=== PATIENT | female | born 1955 | race Caucasian/White ===

== ENCOUNTER 2018-01-26 17:00 | Outpatient (CLI) | payer OTHER | END 2018-01-26 17:01 | disposition home or self-care (01) | LOC: SLEEPLAB 17:00 | PROVIDERS: ATTEND Internal Medicine | DX: G47.33 Obstructive sleep apnea (adult) (pediatric) (principal) | CPT/HCPCS: 95806 ==

== ENCOUNTER 2021-11-22 09:57 | Outpatient (CLI) | payer MEDICARE ==
[2021-11-22 20:33] LABS: SARS-CoV-2 PCR by NAA Not Detected (NotDetected)
== END 2021-11-22 09:58 | disposition home or self-care (01) ==
LOC: LABBT 09:57
PROVIDERS: ATTEND Internal Medicine Gastroenterology
DX: Z01.812 Encounter for preprocedural laboratory examination (principal); Z20.822 Contact with and (suspected) exposure to COVID-19
CPT/HCPCS: U0003; U0005

== ENCOUNTER 2023-05-16 06:00 | Day surgery (SDC) | payer MEDICARE ==
[2023-05-14 16:39] VITALS: BMI 31.0
[2023-05-16] MEDS ORDERED: Lidocaine 1% PF 5 ML VIAL ONE (07:47)
[2023-05-16] MEDS ORDERED: PHENYLEPHRINE-NS 100 MCG/ML 10 ML SYRINGE ONE (07:47)
[2023-05-16] MEDS ORDERED: PROPOFOL 200 MG/20 ML VIAL ONE (07:47)
== END 2023-05-16 09:30 | disposition home or self-care (01) ==
LOC: SDC 06:00
PROVIDERS: ATTEND Internal Medicine
PROC: 0DBN8ZZ Excision of Sigmoid Colon, Via Natural or Artificial Opening Endoscopic (ICD-10-PCS; principal; 2023-05-16)
PROC: 0DBL8ZZ Excision of Transverse Colon, Via Natural or Artificial Opening Endoscopic (ICD-10-PCS; 2023-05-16)
DX: K63.5 Polyp of colon (principal); K57.30 Diverticulosis of large intestine without perforation or abscess without bleeding; K86.2 Cyst of pancreas; K21.9 Gastro-esophageal reflux disease without esophagitis; M19.90 Unspecified osteoarthritis, unspecified site; J44.9 Chronic obstructive pulmonary disease, unspecified; K64.9 Unspecified hemorrhoids; R73.03 Prediabetes; Z98.49 Cataract extraction status, unspecified eye; Z96.649 Presence of unspecified artificial hip joint; Z90.49 Acquired absence of other specified parts of digestive tract; F17.210 Nicotine dependence, cigarettes, uncomplicated
CPT/HCPCS: 88305; J2704

== ENCOUNTER 2025-04-14 13:59 | Emergency (ER) | payer MEDICARE ==
[2025-04-14 14:50] LABS: #Basophils 0.12 10x3/uL (0.0-0.2); #Eosinophils Less than 0.03 10x3/uL (0.0-0.7); #Monocytes 1.28 10x3/uL (0.11-0.59); #Neutrophils 20.03 10x3/uL (1.40-6.50); %Basophils 0.5 % (0.0-1.0); %Eosinophils 0.1 % (0.0-10.0); %Lymphocytes 6.2 % (21.0-51.0); %Monocytes 5.6 % (0.0-10.0); %Neutrophils 87.2 % (42.0-75.0); Hematocrit 47.9 % (36.0-47.0); Hemoglobin 15.4 g/dL (12.0-16.0); Mean Corpuscular Hemoglobin 29.5 pg (27.0-31.0); Mean Corpuscular Volume 91.8 fL (78.0-98.0); Platelet Count 326 10x3/uL (130-400); Red Blood Cell (RBC) Count 5.22 mill/uL (4.20-5.40); White Blood Cell (WBC) Count 22.97 10x3/uL (4.8-10.8)
[2025-04-14 14:53] LABS: Actual Bicarbonate (HCO3v) 35.3 mEq/L (22-28); Analyzer IN Cardio ER; Base Excess 7.1 mEq/L (-2.0 to +3.0); Calcium, Ionized (venous) 1.09 mmol/L (1.16-1.32); Chloride (VBG) 96 mmol/L (98-106); Hematocrit-VBG 49 % (36.0-47.0); Hemoglobin (Hb) 16.7 g/dL (11.7-16.1); Potassium (VBG) 3.70 mmol/L (3.70-5.30); Sodium 140 mmol/L (133-146)
[2025-04-14 15:04] LABS: INR-International Normal Ratio 1.1; PTT 24.9 sec (22.9-36.1); Prothrombin Time 13.8 sec (12.0-14.7)
[2025-04-14 15:13] LABS: ALT (SGPT) 12 U/L (Less than 34); AST (SGOT) 16 U/L (11-34); Albumin 3.7 g/dL (3.1-4.5); Alkaline Phosphatase 73 U/L (40-110); Anion Gap 16 mmol/L (10-20); BUN (Urea Nitrogen) 17 mg/dL (9.8-20.1); Bilirubin, Total 0.4 mg/dL (0.3-1.2); Calc. Creatinine Clearance 0 mL/min (70-130); Calcium 9.4 mg/dL (7.8-10.44); Carbon Dioxide 30 mmol/L (23-31); Chloride 96 mmol/L (98-107); Globulin 3.5 g/dL (2.4-3.5); Glucose 131 mg/dL (80-115); Potassium 3.8 mmol/L (3.5-5.1); Sodium 138 mmol/L (136-145)
[2025-04-14 18:15] LABS: Bacteria/HPF None Seen HPF (None Seen); CAUTI Indications for Culture Alt mental st,lethar; Glucose, Urine (Dipstick) Normal (Negative); Leukocyte Negative Leu/uL (Negative); Protein, Urine (Dipstick) 20 mg/dL (Neg-Trace); RBC/HPF 21-50 HPF (0-3); Specific Gravity, Urine Greater than 1.050 (1.002-1.036); WBC/HPF 0-3 HPF (0-3)
[2025-04-14 18:16] LABS: Urine Culture Reflex No No
== END 2025-04-14 17:46 | disposition home or self-care (01) ==
LOC: ERS 13:59
DX: J44.1 Chronic obstructive pulmonary disease with (acute) exacerbation (principal); F17.210 Nicotine dependence, cigarettes, uncomplicated
CPT/HCPCS: 71275; 74177; 80053; 81001; 82805; 83880; 85025; 85610; 85730; 93005; 94760; J2270; J2919; 36415; 96374; 96375; J7620

== ENCOUNTER 2025-04-27 11:02 | Inpatient (IN) | payer MEDICARE ==
[2025-04-27] MEDS ORDERED: Dexamethasone 10 MG/ML VIAL ONE (11:20)
[2025-04-27] MEDS ORDERED: Cefepime 2 GM VIAL ONE (11:20)
[2025-04-27] MEDS ORDERED: VANCOMYCIN 2 GRAM/400 ML BAG ONE (11:45)
[2025-04-27] MEDS ORDERED: Albuterol 2.5 MG (3 mL) NEB ONE ×2 (11:49→11:53)
[2025-04-27 12:00] LABS: #Basophils 0.10 10x3/uL (0.0-0.2); #Eosinophils Less than 0.03 10x3/uL (0.0-0.7); #Monocytes 1.06 10x3/uL (0.11-0.59); #Neutrophils 11.93 10x3/uL (1.40-6.50); %Basophils 0.7 % (0.0-1.0); %Eosinophils 0.0 % (0.0-10.0); %Lymphocytes 12.9 % (21.0-51.0); %Monocytes 7.0 % (0.0-10.0); %Neutrophils 78.7 % (42.0-75.0); Hematocrit 47.7 % (36.0-47.0); Hemoglobin 15.4 g/dL (12.0-16.0); Mean Corpuscular Hemoglobin 29.4 pg (27.0-31.0); Mean Corpuscular Volume 91.2 fL (78.0-98.0); Platelet Count 270 10x3/uL (130-400); Red Blood Cell (RBC) Count 5.23 mill/uL (4.20-5.40); White Blood Cell (WBC) Count 15.14 10x3/uL (4.8-10.8)
[2025-04-27 12:17] LABS: ALT (SGPT) 17 U/L (Less than 34); AST (SGOT) 20 U/L (11-34); Albumin 3.6 g/dL (3.1-4.5); Alkaline Phosphatase 68 U/L (40-110); Anion Gap 15 mmol/L (10-20); BUN (Urea Nitrogen) 23 mg/dL (9.8-20.1); Bilirubin, Total 0.6 mg/dL (0.3-1.2); Calc. Creatinine Clearance 0 mL/min (70-130); Calcium 9.6 mg/dL (7.8-10.44); Carbon Dioxide 36 mmol/L (23-31); Chloride 92 mmol/L (98-107); Globulin 3.6 g/dL (2.4-3.5); Glucose 142 mg/dL (80-115); Potassium 3.4 mmol/L (3.5-5.1); Sodium 140 mmol/L (136-145)
[2025-04-27 12:18] LABS: Troponin I 0.023 ng/mL (< 0.028)
[2025-04-27 12:23] LABS: Actual Bicarbonate (HCO3a) 36.6 mEq/L (22-28); Analyzer IN Cardio ER; Base Excess (BEa) 8.8 mEq/L (-2.0 to +3.0); Calcium, Ionized (arterial) 1.16 mmol/L (1.12-1.30); Hematocrit-ABG 45 % (36.0-47.0); Hemoglobin (Hb) 15.2 g/dL (12.0-16.0); O2 Tension (PaO2), arterial 73.2 mmHg (> 70.0); Potassium - ABG Lab 3.21 mmol/L (3.70-5.30); pH, Arterial 7.379 (7.35-7.45)
[2025-04-27 12:24] LABS: ALV-art Gradient 75.710 mmHg (0-20); Puncture Site Right Radial artery
[2025-04-27] MEDS ORDERED: Albuterol 2.5 MG (3 mL) NEB NEB PRN (14:28)
[2025-04-27] MEDS ORDERED: Senokot S 8.6-50 MG TAB PO PRN (14:28)
[2025-04-27] MEDS ORDERED: Acetaminophen 325 MG TAB PO PRN (14:28)
[2025-04-27] MEDS ORDERED: Ondansetron PF 4 MG/2 ML Vial IVP PRN (14:28)
[2025-04-27] MEDS ORDERED: Electrolyte Replacement Protocol 1 EACH FS SCH (14:30)
[2025-04-27] MEDS ORDERED: Dextrose 50% Abboject 50 ML SYRINGE SLOW IVP PRN (14:34)
[2025-04-27] MEDS ORDERED: Glucagon 1 MG/ML KIT IM PRN (14:34)
[2025-04-27 14:52] VITALS: BMI 30.2
[2025-04-27] MEDS: LevoFLOXacin 750 mg/D5W 750 MG in Premix 1 BAG IVPB SCH (16:46)
[2025-04-27] MEDS: Potassium Chloride 20 MEQ in Premix 1 BAG IVPB SCH (16:50)
[2025-04-27 17:33] LABS: Troponin I 0.012 ng/mL (< 0.028)
[2025-04-27] MEDS ORDERED: Vancomycin 1 GM in Premix 1 BAG IVPB SCH (18:00)
[2025-04-27] MEDS ORDERED: Mometasone 100 MCG HFA INHALER (RT USE) INH SCH (18:30)
[2025-04-27] MEDS ORDERED: Vancomycin 1 GM in Sodium Chloride 0.9% 250 ML 250 ML IVPB SCH (21:00)
[2025-04-27] MEDS: Melatonin 3 MG TAB PO PRN (23:09)
[2025-04-28 01:34] LABS: Potassium 4.8 mmol/L (3.5-5.1)
[2025-04-28 03:49] LABS: #Basophils Less than 0.03 10x3/uL (0.0-0.2); #Eosinophils Less than 0.03 10x3/uL (0.0-0.7); #Monocytes 0.18 10x3/uL (0.11-0.59); #Neutrophils 8.73 10x3/uL (1.40-6.50); %Basophils 0.2 % (0.0-1.0); %Eosinophils 0.0 % (0.0-10.0); %Lymphocytes 5.3 % (21.0-51.0); %Monocytes 1.9 % (0.0-10.0); %Neutrophils 91.8 % (42.0-75.0); Hematocrit 39.4 % (36.0-47.0); Hemoglobin 12.5 g/dL (12.0-16.0); Mean Corpuscular Hemoglobin 29.6 pg (27.0-31.0); Mean Corpuscular Volume 93.4 fL (78.0-98.0); Platelet Count 245 10x3/uL (130-400); Red Blood Cell (RBC) Count 4.22 mill/uL (4.20-5.40); White Blood Cell (WBC) Count 9.51 10x3/uL (4.8-10.8)
[2025-04-28 04:01] LABS: Vancomycin, Random 9.3 ug/mL (See Comment)
[2025-04-28 04:02] LABS: Anion Gap 11 mmol/L (10-20); BUN (Urea Nitrogen) 19 mg/dL (9.8-20.1); Calc. Creatinine Clearance 133 mL/min (70-130); Calcium 8.6 mg/dL (7.8-10.44); Carbon Dioxide 34 mmol/L (23-31); Chloride 99 mmol/L (98-107); Glucose 165 mg/dL (80-115); Potassium 4.7 mmol/L (3.5-5.1); Sodium 139 mmol/L (136-145)
[2025-04-28] MEDS: ALPRAZolam 0.25 MG TAB PO PRN (07:56)
[2025-04-28 10:01] LABS: Actual Bicarbonate (HCO3v) 34.4 mEq/L (22-28); Base Excess 7.5 mEq/L (-2.0 to +3.0); Calcium, Ionized (venous) 1.12 mmol/L (1.16-1.32); Chloride (VBG) 97 mmol/L (98-106); Hematocrit-VBG 40 % (36.0-47.0); Hemoglobin (Hb) 13.5 g/dL (11.7-16.1); Potassium (VBG) 4.44 mmol/L (3.70-5.30); Sodium 136 mmol/L (133-146)
[2025-04-29 05:23] LABS: #Basophils 0.03 10x3/uL (0.0-0.2); #Eosinophils Less than 0.03 10x3/uL (0.0-0.7); #Monocytes 0.36 10x3/uL (0.11-0.59); #Neutrophils 9.64 10x3/uL (1.40-6.50); %Basophils 0.3 % (0.0-1.0); %Eosinophils 0.0 % (0.0-10.0); %Lymphocytes 6.6 % (21.0-51.0); %Monocytes 3.3 % (0.0-10.0); %Neutrophils 89.2 % (42.0-75.0); Hematocrit 38.8 % (36.0-47.0); Hemoglobin 12.2 g/dL (12.0-16.0); Mean Corpuscular Hemoglobin 29.4 pg (27.0-31.0); Mean Corpuscular Volume 93.5 fL (78.0-98.0); Platelet Count 222 10x3/uL (130-400); Red Blood Cell (RBC) Count 4.15 mill/uL (4.20-5.40); White Blood Cell (WBC) Count 10.81 10x3/uL (4.8-10.8)
[2025-04-29 05:38] LABS: Anion Gap 13 mmol/L (10-20); BUN (Urea Nitrogen) 16 mg/dL (9.8-20.1); Calc. Creatinine Clearance 130 mL/min (70-130); Calcium 8.8 mg/dL (7.8-10.44); Carbon Dioxide 31 mmol/L (23-31); Chloride 98 mmol/L (98-107); Glucose 193 mg/dL (80-115); Potassium 4.8 mmol/L (3.5-5.1); Sodium 137 mmol/L (136-145)
[2025-04-29] MEDS: Pantoprazole 40 MG DR.TAB PO SCH (12:30)
[2025-04-29] MEDS: Enoxaparin 40 MG (0.4 mL) SYRINGE SC SCH (20:18)
[2025-04-29] MEDS: ALPRAZolam 0.25 MG TAB PO SCH (20:18)
[2025-04-30 05:13] LABS: #Basophils 0.09 10x3/uL (0.0-0.2); #Eosinophils Less than 0.03 10x3/uL (0.0-0.7); #Monocytes 1.08 10x3/uL (0.11-0.59); #Neutrophils 10.92 10x3/uL (1.40-6.50); %Basophils 0.7 % (0.0-1.0); %Eosinophils 0.0 % (0.0-10.0); %Lymphocytes 11.1 % (21.0-51.0); %Monocytes 7.9 % (0.0-10.0); %Neutrophils 79.5 % (42.0-75.0); Hematocrit 40.5 % (36.0-47.0); Hemoglobin 12.4 g/dL (12.0-16.0); Mean Corpuscular Hemoglobin 28.7 pg (27.0-31.0); Mean Corpuscular Volume 93.8 fL (78.0-98.0); Platelet Count 233 10x3/uL (130-400); Red Blood Cell (RBC) Count 4.32 mill/uL (4.20-5.40); White Blood Cell (WBC) Count 13.73 10x3/uL (4.8-10.8)
[2025-04-30 05:30] LABS: Anion Gap 11 mmol/L (10-20); BUN (Urea Nitrogen) 19 mg/dL (9.8-20.1); Calc. Creatinine Clearance 135 mL/min (70-130); Calcium 8.5 mg/dL (7.8-10.44); Carbon Dioxide 35 mmol/L (23-31); Chloride 100 mmol/L (98-107); Glucose 102 mg/dL (80-115); Potassium 4.1 mmol/L (3.5-5.1); Sodium 142 mmol/L (136-145)
[2025-04-30] MEDS: Pantoprazole 40 MG DR.TAB PO SCH (08:07)
[2025-05-01 05:59] LABS: #Basophils 0.07 10x3/uL (0.0-0.2); #Eosinophils Less than 0.03 10x3/uL (0.0-0.7); #Monocytes 0.93 10x3/uL (0.11-0.59); #Neutrophils 7.31 10x3/uL (1.40-6.50); %Basophils 0.7 % (0.0-1.0); %Eosinophils 0.0 % (0.0-10.0); %Lymphocytes 21.5 % (21.0-51.0); %Monocytes 8.7 % (0.0-10.0); %Neutrophils 68.4 % (42.0-75.0); Hematocrit 42.5 % (36.0-47.0); Hemoglobin 13.5 g/dL (12.0-16.0); Mean Corpuscular Hemoglobin 29.4 pg (27.0-31.0); Mean Corpuscular Volume 92.6 fL (78.0-98.0); Platelet Count 246 10x3/uL (130-400); Red Blood Cell (RBC) Count 4.59 mill/uL (4.20-5.40); White Blood Cell (WBC) Count 10.69 10x3/uL (4.8-10.8)
[2025-05-01 06:09] LABS: Anion Gap 12 mmol/L (10-20); BUN (Urea Nitrogen) 13 mg/dL (9.8-20.1); Calc. Creatinine Clearance 131 mL/min (70-130); Calcium 8.7 mg/dL (7.8-10.44); Carbon Dioxide 33 mmol/L (23-31); Chloride 98 mmol/L (98-107); Glucose 157 mg/dL (80-115); Potassium 4.0 mmol/L (3.5-5.1); Sodium 139 mmol/L (136-145)
[2025-05-01 16:16] VITALS: BP 123/72; TEMP 98.1
[2025-05-10 10:05] LABS: CO2 Tension 63.4 mmHg (35.0-45.0)
== END 2025-05-01 15:53 | disposition hospice, home (50) | DRG 189 ==
LOC: ERS 11:02 → CCU 13:40 → T4-A 04-30 10:05
PROVIDERS: ADMIT Internal Medicine; ATTEND Internal Medicine
PROC: 5A09457 Assistance with Respiratory Ventilation, 24-96 Consecutive Hours, Continuous Positive Airway Pressure (ICD-10-PCS; principal; 2025-04-27)
PROC: 3E03329 Introduction of Other Anti-infective into Peripheral Vein, Percutaneous Approach (ICD-10-PCS; 2025-04-27)
PROC: 5A09357 Assistance with Respiratory Ventilation, Less than 24 Consecutive Hours, Continuous Positive Airway Pressure (ICD-10-PCS; 2025-04-30)
DX: J96.21 Acute and chronic respiratory failure with hypoxia (principal); J44.1 Chronic obstructive pulmonary disease with (acute) exacerbation; J96.22 Acute and chronic respiratory failure with hypercapnia; Z51.5 Encounter for palliative care; F41.9 Anxiety disorder, unspecified; F17.210 Nicotine dependence, cigarettes, uncomplicated; E11.65 Type 2 diabetes mellitus with hyperglycemia; I10 Essential (primary) hypertension; Z96.651 Presence of right artificial knee joint; Z98.890 Other specified postprocedural states; Z99.81 Dependence on supplemental oxygen; Z90.49 Acquired absence of other specified parts of digestive tract; Z79.2 Long term (current) use of antibiotics; Z79.899 Other long term (current) drug therapy; Z99.89 Dependence on other enabling machines and devices; D72.829 Elevated white blood cell count, unspecified; Z96.641 Presence of right artificial hip joint
CPT/HCPCS: 36415; 36416; 36600; 71045; 80048; 80053; 80202; 82805; 83605; 83880; 84145; 84443; 84484; 85025; 87040; 93005; 94640; 94644; 94660; 94760; 96365; 96366; 96375; J0692; J1100; J1650; J1815; J1956; J2270; J2272; J2919; J3370; J3480; J7611; J7620; J7626